=== PATIENT | male | born 1945 | race Caucasian/White ===

== ENCOUNTER 2016-07-26 07:34 | Day surgery (SDC) | payer OTHER, MEDICARE ==
[2016-07-24 17:00] VITALS: BMI 27.3
[2016-07-26] MEDS ORDERED: MIDAZOLAM HCL 2 MG/2 ML SINGLE DOSE VIAL ONE (08:47)
[2016-07-26] MEDS ORDERED: LIDOCAINE HCL/PF 2% SDV 5ML VIAL ONE (08:47)
[2016-07-26] MEDS ORDERED: PROPOFOL 20 ML ONE (08:47)
[2016-07-26] MEDS ORDERED: LEVOFLOXACIN 500 MG PREMIX BAG IVPB ONE (09:16)
[2016-07-26] MEDS ORDERED: LEVOFLOXACIN 500 MG IVPB 100 ML IVPB ONE (09:31)
[2016-07-26] MEDS ORDERED: oxyCODONE HCL 5 MG TABLET PO PRN (10:12)
[2016-07-26] MEDS ORDERED: ONDANSETRON 4 MG/2 ML VIAL IVPUSH PRN (10:12)
--- NOTE | 2016-07-26 10:12 | OP ---
Operative Note - Note: Operative Date: 07/26/16 Pre-Operative Diagnosis: BPH Operation: bipolar TURP/TURVP Findings: obstructive trilobar hyperplasia Post-Operative Diagnosis: Same as Pre-op Surgeon: Getachew Carvajal Anesthesiologist/APPLICATIONS SUPPORT SPECIALIST: Kylee Hidalgo Anesthesia: Spinal Specimens Removed: prostate chips Estimated Blood Loss (mls): 10 Drains & Tubes with Location: 24 fr deutsch Operative Report Dictated: Yes
[2016-07-26] MEDS ORDERED: LACTATED RINGERS SOLUTION 1,000 ML IV SCH (10:15)
[2016-07-26] MEDS ORDERED: ELECTROLYTE-148 SOLN 1,000 ML IV SCH (10:15)
[2016-07-26 12:25] VITALS: TEMP 97.4
[2016-07-26 14:30] VITALS: BP 150/82; PULSE 79
--- NOTE | 2016-07-26 14:42 | OP ---
DATE OF OPERATION: 07/26/2016 PREOPERATIVE DIAGNOSIS: Benign prostatic hypertrophy with obstructive urinary symptoms and weak stream. POSTOPERATIVE DIAGNOSIS: Benign prostatic hypertrophy with obstructive urinary symptoms and weak stream. PROCEDURE: Cystoscopy, bipolar transurethral resection of prostate, and bipolar transurethral vaporization of prostate. SURGEON: Getachew Carvajal MD INDICATION: The patient is a 71-year-old male with a long history of BPH and most recently with worsening urinary symptoms despite medical therapy. After reviewing treatment options, the patient elected to undergo bipolar TURP and TURVP, understood the risks of bleeding, infection, impotence, incontinence, stricture formation, potential persistence of urinary symptoms, potential worsening of urinary symptoms, potential need for additional procedures, potential injury to adjacent organs and retrograde ejaculation. DESCRIPTION OF PROCEDURE: After informed consent was obtained, the patient was taken to the OR and placed supine on the operating table. After cardiac monitoring had been placed, a spinal anesthetic was given. He was prepped and draped in the dorsal lithotomy position in a sterile fashion. A 26-sheath resectoscope with visual obturator was inserted into the urethra without difficulty. Anterior urethra was normal. The prostatic urethra was 4 cm and visually occlusive with an enlarged median bar. There were no tumors or stones noted in the bladder. At this point, using the resector loop, the median bar tissue was resected down to the level of the bladder and at this point, with this out of the way, lateral lobe tissue was resected to create an open channel. There was no resection within 1 cm of the verumontanum. At this point, then, the prostate chips were removed out with the evacuator. The area of the prostatic urethra which had been resected was now vaporized with the button electrode as well as cauterized to minimize bleeding. With the resectoscope situated just past the verumontanum and going towards the bladder, a wide-open channel was noted. The resector was then removed and a 24-German Napoles was then placed to straight drainage. [id number] urine was retrieved. The patient was awakened from anesthesia and transferred to the recovery room in stable condition. There were no complications. Estimated blood loss was minimal. Tonia [id number]
--- NOTE | 2016-07-27 14:10 | PATH ---
Surgical Pathology Report Patient Name: ZAINAB CANTRELL [facility]. Rec. #: [id number] /Age/Gender: 1945 (Age: 71) / M Account: [id number] Location: [facility] SURGICAL Taken: 07/26/2016 Received: 07/26/2016 Reported: 07/27/2016 Physicians: Getachew Carvajal M.D. Specimen(s) Received PROSTATE CHIPS Clinical History BPH Final Diagnosis PROSTATE, TUR: BENIGN PROSTATE TISSUE WITH GLANDULAR AND STROMAL HYPERPLASIA WITH ACUTE AND CHRONIC INFLAMMATION. Electronically Signed Delmar Ca M.D. Gross Description Received in formalin, labeled "prostate chips" is a 9 g, 8.0 x 6.5 x 0.4 cm aggregate of multiple rebolledo, irregular, firm to rubbery portions of tissue, consistent with prostate chips. The specimen is entirely submitted in 9 cassettes. /07/26/201607/26/2016
== END 2016-07-26 14:30 | disposition home or self-care (01) ==
LOC: JASU-SURG 07:34
PROVIDERS: ATTEND Urology
PROC: 0TJB8ZZ Inspection of Bladder, Via Natural or Artificial Opening Endoscopic (ICD-10-PCS; 2016-07-26)
PROC: 0VT08ZZ Resection of Prostate, Via Natural or Artificial Opening Endoscopic (ICD-10-PCS; principal; 2016-07-26 09:00)
DX: N40.1 Benign prostatic hyperplasia with lower urinary tract symptoms (principal); R39.12 Poor urinary stream
CPT/HCPCS: 88305-TC; 94760